=== PATIENT | female | born 1950 | race Caucasian/White ===

== ENCOUNTER 2018-02-28 18:44 | Emergency (ER) | payer OTHER ==
--- OUTSIDE RECORDS SUMMARY | 2018-02-28 18:46 | XMS REPORT | Clinical Summary ---
:1950 Author Organization [facility] Address [address] [place] [address] Care Team Providers Name Role Phone Asked, No Pcp Primary Care Provider Unavailable Allergies Active Allergy Reactions Severity Noted Date Comments Cephalexin Nausea And Vomiting 02/21/2013 Hydrocodone Itching 07/03/2016 Medications Medication Sig Dispensed Refills Start Date End Date Status aspirin (ECOTRIN) 81 MG Take 81 mg by 0 Active enteric coated tablet mouth daily. escitalopram (LEXAPRO) Take 20 mg by 0 Active 10 MG tablet mouth daily. lisinopril Take 20 mg by 0 Active (PRINIVIL,ZESTRIL) 20 mg mouth daily. tablet metoprolol succinate XL Take 50 mg by 0 Active (TOPROL-XL) 25 mg 24 hr mouth daily. tablet Active Problems Not on file Social History Tobacco Use Types Packs/Day Years Used Date Never Smoker Sex Assigned at Date Recorded Not on file Job Start Date Occupation Industry Not on file Not on file Not on file Travel History Travel Start Travel End No recent travel history available. Last Filed Vital Signs Not on file Plan of Treatment Health Maintenance Due Date Last Done Comments CERVICAL CANCER SCREENING 1973 BREAST CANCER SCREENING 2002 COLON CANCER SCREENING 2002 SHINGLES VACCINES (1 of 2) 2002 PNEUMOCOCCAL POLYSACCHARIDE VACCINE AGE 65 AND OVER 2017 PNEUMOCOCCAL-13 2017 INFLUENZA VACCINE 09/26/2017 Results Not on fileafter 02/27/2017 Insurance Payer Benefit Plan / Group Subscriber ID Type Phone Address [employer] [facility] EX[employer]ANGE xxxxxxxxxxxx [employer] Advance Directives Patient has advance care planning documents on file. For more information, please contact:[place] [place] [address]
--- OUTSIDE RECORDS SUMMARY | 2018-02-28 18:47 | XMS REPORT | Continuity of Care Document ---
:1950 Author Organization Interface Problems Problem Status Onset Classification Date Comments Source Date Reported R10.2 - PELVIC Active 09/01/19 [facility] AND PERINEAL PAIN 17 [facility] CVA Active 11/24/19 14 [facility] HEAVY ARMS Active 11/24/19 14 [facility] SPINAL STENOSIS Active 11/24/19 14 [facility] Arthritis Resolved Problem 11/17/2016 [facility] Depression Active Problem 11/17/2016 [facility] Diverticulitis Resolved Problem 11/17/2016 [facility] HTN (<span Resolved Problem 11/17/2016 OP[facility] ID="[id number]"> [facility] Confirmed</span>) [facility] IBS (<span Resolved Problem 11/17/2016 [facility] ID="[id number]"> [facility] Confirmed</span>) [facility] SPINAL STENOSIS Active NOS [facility] Medications Medication Details Route Status Patient Ordering Order Source Instructions Provider Date Ciprofloxacin 500 mg=1 tab, Active 500 MG Oral PO, Q12H, # 2014 [facility] Tablet [Cipro] 14 tab, 0 Refill(s) metoprolol 50 mg, 1 tab, Inactive extended Route: PO, 2013 release Drug form: ERTAB, Daily, Start date: 11/25/13 9:00:00, Duration: 30 day, Stop date: 12/24/13 9:00:00Notes: (Same as: Toprol XL) May split tab, but do not crush. Lexapro 20 mg, 1 tab, Inactive Route: PO, 2013 [facility] Drug form: TAB, Daily, Dosing Weight 71.364, kg, Start date: 11/25/13 9:00:00, Duration: 30 day, Stop date: 12/24/13 9:00:00Notes: (Same as: Lexapro) meloxicam 15 mg, 2 tab, Inactive Route: PO2013 [facility] Drug form: TAB, Daily, Dosing Weight 71.364, kg, Start date: 11/25/13 9:00:00, Duration: 30 day, Stop date: 12/24/13 9:00:00Notes: (Same as: Mobic) Lisinopril 20 mg, 1 tab, Inactive Route: PO, 2013 Drug form: TAB, BID, Dosing Weight 71.364, kg, Start date: 11/25/13 9:00:00, Duration: 30 day, Stop date: 12/24/13 17:00:00Notes : (Same as: Prinivil, Zestril) Pravastatin 10 mg, 0.5 No Longer tab, Route: Active 2013 PO, Drug form: TAB, Bedtime, Dosing Weight 71.364, kg, Start date: 11/24/13 21:00:00, Duration: 30 day, Stop date: 12/23/13 21:00:00Notes : (Same as: Pravachol) Ciprofloxacin 400 mg, 200 No Longer mL, Route: Active 2013 IVPB, Drug form: INJ, [id number], Dosing Weight 71.364, kg, Start date: 11/24/13 19:00:00, Duration: 30 day, Stop date: 12/24/13 7:00:00Notes: Do not refrigerate Rocephin 1 gm, Route: Inactive IVPB, Drug 2013 form: PDR/INJ, [id number], Dosing Weight 71.364, kg, Start date: 11/24/13 17:00:00, Duration: 30 day, Stop date: 12/23/13 17:00:00 pravastatin 10 =10 mg, PO, Active mg oral tablet Bedtime, # 30 2013 tab, 0 Refill(s) Aspirin 325 MG 325 mg=1 tab, Active Enteric Coated PO, Daily, # 2013 Tablet 24 tab, 0 Refill(s) Influenza Virus 0.5 ml, Inactive Vaccine, Route: IM, 2013 Inactivated Drug Form: [id number] SUSP, Daily, 007 (H3N2)-like Start date: virus 11/24/13 ([id number]- 9:00:00, 2006 [facility] Duration: 1 X-175C) strain doses or / Influenza times, Stop Virus Vaccine, date: Inactivated 11/24/13 [id number] 9:00:00Notes: 007, IVR-148 (Same as: (H1N1) strain / Fluzone Influenza Virus Quadrivalent) Vaccine, Inactivated, [id number] 6-lik Lisinopril 25 mg, 2.5 Inactive tab, Route: 2013 PO, Drug form: TAB, Daily, Dosing Weight 71.364, kg, Start date: 11/24/13 9:00:00, Duration: 30 day, Stop date: 12/23/13 9:00:00Notes: (Same as: Prinivil, Zestril) Lexapro 25 mg, 2.5 Inactive tab, Route: 2013 PO, Drug form: TAB, Daily, Dosing Weight 71.364, kg, Start date: 11/24/13 9:00:00, Duration: 30 day, Stop date: 12/23/13 9:00:00Notes: (Same as: Lexapro) metoprolol 25 mg, 1 tab, Inactive extended Route: PO, 2013 release Drug form: ERTAB, Daily, Start date: 11/24/13 9:00:00, Duration: 30 day, Stop date: 12/23/13 9:00:00Notes: (Same as: Toprol XL) Do Not Crush Aspirin 325 MG 325 mg, 1 No Longer Enteric Coated tab, Route: Active 2013 Tablet PO, Drug form: ECTAB, Daily, Dosing Weight 71.364, kg, Start date: 11/24/13 9:00:00, Duration: 30 day, Stop date: 12/23/13 9:00:00Notes: (Do Not Crush) Do not crush or chew. Saline Flush 10 ml, Route: No Longer 0.9% IVP, Drug Active 2013 Form: INJ, Dosing Weight 71.364, kg, Q12H, Start date: 11/23/13 21:00:00, Duration: 30 day, Stop date: 12/23/13 9:00:00Notes: (Same as: BD Posiflush) Ambien 5 mg, 1 tab, No Longer Route: PO, Active 2013 [facility] Drug form: TAB, Bedtime, Dosing Weight 71.364, kg, PRN as needed for sleep, Start date: 11/23/13 17:03:00, Duration: 30 day, Stop date: 12/23/13 17:02:00Notes : (Same As: Ambien) Zolpidem 5 mg=1 tab, Active tartrate 5 MG PO, Bedtime, 2013 Oral Tablet for sleep, 0 [Ambien] Refill(s) Clonidine 0.1 mg, 1 No Longer Hydrochloride tab, Route: Active 2013 [facility] 0.1 MG Oral PO, Drug Tablet form: TAB, Q8H, Dosing Weight 71.364, kg, PRN Elevated BP, Start date: 11/23/13 14:54:00, Duration: 30 day, Stop date: 12/23/13 14:53:00, htnNotes: (Same As: Catapres) Zofran 4 mg, 2 mL, No Longer Route: IVP, Active 2013 [facility] Drug form: INJ, Q4H, Dosing Weight 71.364, kg, PRN Nausea, Start date: 11/23/13 14:51:00, Duration: 30 day, Stop date: 12/23/13 14:50:00Notes : (Same as: Zofran) Ativan 1 mg, 0.5 mL, No Longer Route: IVP, Active 2013 [facility] Drug form: INJ, Q6H, Dosing Weight 71.364, kg, PRN as needed for anxiety, Start date: 11/23/13 14:51:00, Duration: 30 day, Stop date: 12/23/13 14:50:00Notes : (Same as: Ativan) nitroglycerin 0.4 mg, 1 No Longer 0.4 mg tab, Route: Active 2013 [facility] sublingual SL, Drug tablet form: TAB, Q5Min, PRN Chest Pain, Start date: 11/23/13 14:33:00, Duration: 30 day, Stop date: 12/23/13 14:32:00Notes : (Same as:Nitroquick , Nitrostat) "Do Not Crush" Sublingual tablet atropine 0.5 mg, 5 mL, No Longer Route: IVP, Active 2013 [facility] Drug form: INJ, PRN, PRN Bradycardia, Start date: 11/23/13 14:33:00, Duration: 30 day, Stop date: 12/23/13 14:32:00 Saline Flush 10 ml, Route: No Longer 0.9% IVP, Drug Active 2013 [facility] Form: INJ, Dosing Weight 71.364, kg, PRN, PRN Line Flush, Start date: 11/23/13 14:04:00, Duration: 30 day, Stop date: 12/23/13 14:03:00Notes : (Same as: BD Posiflush) Labetalol 10 mg, 2 mL, No Longer Route: IVP, Active 2013 [facility] Drug form: INJ, Q10Min, Dosing Weight 71.364, kg, PRN Hypertension, Start date: 11/23/13 14:04:00, Duration: 30 day, Stop date: 12/23/13 14:03:00, For SBP > 180mmHg and/or DBP > 105mmHgNotes: (Same as: Normodyne, Trandate) Push over 2 minutes Give bolus over 2-3 minutes. aspirin 325 mg, Inactive Route: PO, 2013 [facility] Drug form: ECTAB, ONCE, Dosing Weight 71.364, kg, Priority: STAT, Start date: 11/23/13 11:51:00, Stop date: 11/23/13 11:51:00 Lysine See Active Instructions, 2013 [facility] Daily, 1,000 mg, 0 Refill(s)Spec ial Instructions: 1,000 mg meloxicam PO, Daily, 0 Active Refill(s) 2013 Ascorbic Acid / PO, Daily, 0 Active Biotin / Folic Refill(s) 2013 [facility] Acid / Niacin / pantothenate / pyridoxine / Riboflavin / Thiamine / Vitamin B 12 Lexapro 25 mg, PO, Active Daily, 0 2013 [facility] Refill(s) metoprolol 25 mg, PO, Active extended Daily, 0 2013 release Refill(s) Lisinopril 25 mg, Daily, Active 0 Refill(s) 2013 Saline Flush 10 mL, Route: No Longer 0.9% IVP, Drug Active 2013 [facility] Form: INJ, Dosing Weight 68.182, kg, PRN, PRN Line Flush, Start date: 11/23/13 10:28:00, Duration: 30 day, Stop date: 12/23/13 10:27:00Notes : Same as: BD Posiflush Sterile Allergies, Adverse Reactions, Alerts Substance Category Reaction Severity Reaction Status Date Comments Source type Reported codeine Assertion Drug Active [facility] allergy [facility] Keflex Assertion Drug Active [facility] allergy [facility] Immunizations Immunization Date Site Status Last Comments Source Given Updated influenza virus Right completed [facility] vaccine, 4 Deltoid [facility], inactivated [facility] Results Order Name Results Value Reference Date Interpretation Comments Source Range Abdomen Abdomen ULTRASOUND ABDOMEN COMPLETE 11/14 - [facility] complete complete US /2016 - [facility] US HISTORY: - Liver/ kid cyst; Read by: Bonilla Thompson MD Dictated Date/time: 11/14/16 14:54 Electronically Signed by: Bonilla Thompson MD 11/14/16 14:57 FINAL REPORT COMPARISON: None available. TECHNIQUE: Grayscale and limited color sonographic evaluation of the abdomen was performed with standard technique. FINDINGS: Evaluation limited by large patient body habitus. LIVER: The visualized liver shows normal contour, size, and morphology. Small benign cyst noted in the left hepatic lobe measuring 1 cm. There is mild diffusely increased hepatic echogenicity, compatible with mild hepatic steatosis. BILE DUCTS: The intrahepatic and extrahepatic bile ducts are not dilated with the common bile duct measuring 5 mm. GALLBLADDER: There are no gallstones, gallbladder sludge, pericholecystic fluid or wall thickening. PANCREAS: The pancreas is obscured by bowel gas. SPLEEN: The spleen is unremarkable and measures 9.6 cm in long axis. KIDNEY: The right kidney measures 3.8 x 4.6 x 5.1 cm. The left kidney measures 8.7 x 5.2 x 4.6 cm. There is normal renal contour and morphology, with normal parenchymal echotexture. There is no hydronephrosis. No renal cyst is identified. AORTA AND INFERIOR VENA CAVA: Visualized portions appear normal. ASCITES: There is no abdominal ascites. IMPRESSION: 1. Examination limited by large patient body habitus. 2. Hepatic steatosis. 3. Small benign 1 cm liver cyst. SL: [id number] Pelvis Pelvis PROCEDURE: TRANSVAGINAL PELVIS ULTRASOUND 09/06 [facility] Transvagin Transvaginal /[address] [place] [address] US CLINICAL INDICATION: R10.2. Pelvic pain. Read by: Matheus Wilson MD Dictated Date/time: 09/06/16 16:10 Electronically Signed by: Matheus Wilson MD 09/06/16 16:21 FINAL REPORT COMPARISON: None. TECHNIQUE: Transvaginal ultrasound of the pelvis was performed with sandoval scale and supplemental color flow and Doppler imaging. Static images are submitted. FINDINGS: UTERUS: The uterus measures 5.8 x 2.7 x 3 cm (length x AP x width). The maximal endometrial stripe thickness measures 0.42 cm. There is a 3.5 x 3.2 x 3.9 cm mass adjacent to the posterior lower uterine segment extending into the left adnexa. The primary consideration is a subserosal fibroid. A left adnexal mass cannot be excluded. Images of the cervix are unremarkable. OVARIES: The ovaries are not seen. ADDITIONAL FINDINGS: There is no demonstrable pelvic free fluid. IMPRESSION: 1. There is a 3.9 cm subserosal uterine leiomyoma versus a left adnexal mass. Further evaluation may be obtained with an MRI of the pelvis. 2. Nonvisualization of the ovaries. 3. Otherwise unremarkable transvaginal pelvis ultrasound. SL: 16 Spine Spine MRI CERVICAL SPINE WITHOUT CONTRAST 11/24 cervical cervical [facility] contrast MRI contrast MRI INDICATION: Pain with neurological manifestation Read by: Tino Altamirano MD Dictated Date/time: 11/24/13 16:16 Electronically Signed by: Tino Altamirano MD 11/24/13 16:29 FINAL REPORT COMPARISON: None DISCUSSION: Image detail is degraded by motion artifacts. Alignment: There is mild antilordotic curvature of the cervical spine. Vertebral body alignment is otherwise grossly within normal limits. Craniocervical junction: No abnormalities. The foramen magnum is patent. Vertebral bodies: Normal in height and signal from C2 through T4. Spinal cord: Grossly normal in signal from the foramen magnum through T4- T5. Soft tissues: No signal abnormalities are visualized. Disc spaces, foramina, and spinal canal: C2-C3 and C3-C4: The discs are normal in height and signal. There is no significant arthrosis. The spinal canal and foramina are patent. C4-C5: The disc is normal in height and signal. Mild posterior disc osteophyte complex effaces the ventral cord, without spinal canal stenosis. Mild right uncovertebral and facet arthrosis result in mild right foraminal stenosis. The left foramen is patent. C5-C6: There is mild loss of disc height. Posterior disc osteophyte complex, with 3 mm right paracentral disc protrusion, results in mild spinal canal stenosis and indentation of the ventral cord. Uncovertebra l and facet arthrosis result in severe right foraminal stenosis and mild left foraminal stenosis. C6-C7: There is mild loss of disc height. Posterior disc osteophyte complex and buckling of the ligamentum flavum result in mild spinal canal stenosis and anterior thecal effacement. Bilateral uncovertebral an d right facet arthrosis contribute to moderate right foraminal stenosis and mild left foraminal stenosis. C7-T1: The disc is normal in height and signal. There is no significant arthrosis. The spinal canal and foramina are patent. A small perineural root sleeve cyst is noted at the right foramen. IMPRESSION: 1. Cervical spondylosis results in varying degrees of spinal canal and foraminal stenosis, as described. Spinal canal stenosis is mild at worst. Foraminal stenosis is severe on the right side at C5-C6. 2. A 3 mm right paracentral disc protrusion at C5-C6 contributes to spinal canal stenosis and indentation of the cord. SL: 16 Brain wo Brain wo MRI BRAIN WITHOUT CONTRAST 11/23 - contrast contrast /2013 - [facility] CLINICAL INDICATION: Weakness Read by: Miller Delgado MD Dictated Date/time: 11/24/13 07:43 Electronically Signed by: Miller Delgdao MD 11/24/13 07:44 FINAL REPORT COMPARISON: CT of the brain from 11/23/2013 TECHNIQUE: Multiplanar, multisequence magnetic resonance imaging of the brain was performed without administration of intravenous gadolinium contrast. Findings: Age-related atrophy of the brain parenchyma is seen. Scattered mild chronic microvascular ischemic changes are seen. No restricted areas of diffusion to suggest acute infarct are seen. No acut e intracranial hemorrhage, mass effect, midline shift, or hydrocephalus is seen. There are no extra axial fluid collections. The midline structures are intact. The visualized intracranial flow voids are unremarkable. Mucus retention cyst in the right maxillary sinus is present. IMPRESSION: Mild chronic microvascular ischemic changes without acute intracranial abnormality. SL: 12 LIPIDS HDL 56 mg/dL >=61 mg/dL 11/23 [facility] LIPIDS CHD Risk 3.23 3.90 - 11/23 MH 5.80 /2013 [facility] LIPIDS Chol 181 mg/dL <=199 11/23 MH mg/dL /2013 [facility] LIPIDS Trig 65 mg/dL <=149 11/23 MH mg/dL /2013 [facility] LIPIDS LDL 112 mg/dL <=99 mg/dL 11/23 (Calculated) [facility] LIPIDS VLDL 13 11/23 [facility] CARDIAC CK MB Index 1.6 0.0 - 2.5 11/23 ENZYMES /2013 [facility] CARDIAC Troponin-I null 0.00 - 11/23 [facility] 0.40 [facility] CARDIAC Total CK 133 unit/L 12 - 191 11/23 ENZYMES /2013 [facility] CARDIAC CK MB 2.1 ng/mL 0.5 - 3.6 11/23 ENZYMES [facility] CHEM PANEL eGFR 94 11/23 1Result Comment: The eGFR is calculated using the CKD-EPI formula. In most young, healthy individuals the eGFR will be >90 mL/ min/1.73m2. The eGFR declines with age. An eGFR of 60-89 may be normal in mL/min/1.7 /2013 some populations, particularly the elderly, for whom the CKD-EPI formula has not been extensively validated. Use of the eGFR is not recommended in the following populations: [facility] 3m2 Individuals with unstable creatinine concentrations, including patients and those with serious co-morbid conditions. Patients with extremes in muscle mass or diet. The data above are obtained from the National Kidney Disease Education Program (NKDEP) which additionally recommends that when the eGFR is used in patients with extremes of body mass index for purposes of drug dosing, the eGFR should be multiplied by the estimated BMI. CHEM PANEL BUN 20 mg/dL 7 - 22 11/23 [facility] CHEM PANEL Chloride Lvl 109 meq/L 95 - 109 11/23 [facility] CHEM PANEL Sodium Lvl 143 meq/L 135 - 145 11/23 [facility] CHEM PANEL Calcium Lvl 8.8 mg/dL 8.5 - 10.5 11/23 [facility] CHEM PANEL AGAP 11.7 meq/L 10.0 - 11/23 MH 20.0 [facility] CHEM PANEL Creatinine 0.7 mg/dL 0.5 - 1.4 11/23 Lvl [facility] CHEM PANEL Glucose Lvl 97 mg/dL 70 - 99 11/23 2Interpretive Data: Adult reference range values reflect the clinical guidelines of the [employer]. [facility] CHEM PANEL Potassium 3.7 meq/L 3.5 - 5.1 11/23 Lvl [facility] CHEM PANEL CO2 26 meq/L 24 - 32 11/23 [facility] HEMATOLOGY Eosinophils 2.3 % 0.0 - 4.0 11/23 [facility] HEMATOLOGY Segs-Bands # 6.0 K/CMM 1.5 - 8.1 11/23 [facility] HEMATOLOGY Basophils 0.9 % 0.0 - 1.0 11/23 [facility] HEMATOLOGY Eosinophils 0.2 K/CMM 0.0 - 0.5 11/23 MH # /2013 [facility] HEMATOLOGY Monocytes # 0.7 K/CMM 0.0 - 0.8 11/23 [facility] HEMATOLOGY Lymphocytes 1.9 K/CMM 1.0 - 5.5 11/23 MH # /2013 [facility] HEMATOLOGY Basophils # 0.1 K/CMM 0.0 - 0.2 11/23 [facility] HEMATOLOGY Segs 67.8 % 45.0 - 11/23 MH 75.0 [facility] HEMATOLOGY Lymphocytes 21.2 % 20.0 - 11/23 MH 40.0 /2013 [facility] HEMATOLOGY Monocytes 7.8 % 2.0 - 12.0 11/23 [facility] HEMATOLOGY PTT 30.3 s 22.9 - 11/23 4Interpretive 35.8 Data: Heparin [facility] Therapeutic Range: 57 - 92 Seconds HEMATOLOGY Platelet 251 K/CMM 133 - 450 11/23 [facility] HEMATOLOGY RDW 13.6 % 11.5 - 11/23 MH 14. [facility] HEMATOLOGY MCV 90.4 fL 80.0 - 11/23 MH 98.0 [facility] HEMATOLOGY MCH 31.4 pg 27.0 - 11/23 MH 31.0 /2014 [facility] HEMATOLOGY MPV 8.9 fL 7.4 - 10.4 11/23 [facility] HEMATOLOGY WBC 8.9 K/CMM 3.7 - 10.4 11/23 [facility] HEMATOLOGY MCHC 34.7 g/dL 32.0 - 11/23 36.0 /2013 [facility] HEMATOLOGY Hgb 12.2 g/dL 12.0 - 11/23 16.0 /2013 [facility] HEMATOLOGY Hct 35.2 % 36.0 - 11/23 48.0 /2014 [facility] HEMATOLOGY RBC 3.89 M/CMM 4.20 - 11/23 5.40 /2014 [facility] HEMATOLOGY INR 1.05 0.85 - 11/23 3Interpretive Data: RECOMMENDED RANGES FOR PROTIME INR: 1.17 2.0-3.0 for most medical and surgical thromboembolic states. [facility] 2.5-3.5 for artificial heart valves and recurrent embolism. INR SHOULD BE USED ONLY FOR PATIENTS ON STABLE ANTICOAGULANT THERAPY. HEMATOLOGY PT 13.7 s 12.0 - 11/23 14.7 /2013 [facility] URINE AND UA 0.2 EU/dL 0.1 - 1.0 11/23 STOOL Urobilinogen [facility] URINE AND UA Nitrite Negative Negative 11/23 STOOL [facility] (11/23/13 11:00 AM) URINE AND UA Leuk Est Moderate Negative 11/23 [facility] *ABN* (11/23/13 11:00 AM) URINE AND UA Blood Negative Negative 11/23 STOOL [facility] (11/23/13 11:00 AM) URINE AND UA Protein Negative Negative 11/23 STOOL [facility] (11/23/13 11:00 AM) URINE AND UA Glucose Negative Negative 11/23 STOOL [facility] (11/23/13 11:00 AM) URINE AND UA Ketones Negative Negative 11/23 STOOL [facility] *NA* (11/23/13 11:00 AM) URINE AND UA Spec Grav 1.010 <=1.030 11/23 STOOL [facility] URINE AND UA pH 6.0 5.0 - 8.0 11/23 STOOL [facility] URINE AND UA Bili Negative Negative 11/23 STOOL [facility] *NA* (11/23/13 11:00 AM) URINE AND UA Color Yellow Yellow 11/23 [facility] *NA* (11/23/13 11:00 AM) URINE AND UA Turbidity Slight Cloudy Clear 11/23 [facility] (11/23/13 11:00 AM) URINE AND UA Sq Epi Few /LPF Few /LPF 11/23 URINE AND UA RBC 0-2 /HPF 0 - 2 11/23 URINE AND UA WBC 3-5 /HPF None Seen 11/23 STOOL /HPF URINE AND UA Bacteria Few /HPF None Seen 11/23 STOOL /HPF [facility] Carotid Carotid HISTORY: Weakness. 11/23 artery artery Doppler Doppler bilat US bilat US Read by: Ben Kingston MD Dictated Date/time: 11/24/13 07:18 Electronically Signed by: Ben Kingston MD 11/24/13 07:19 FINAL REPORT Note: "Any reported ICA stenoses indirectly reference the distal internal carotid diameter as the denominator for stenosis measurement, using consensus panel criteria." Right ICA peak systolic velocity 1.1 m/sec. Left ICA peak systolic velocity 1.0 m/sec. The internal to common carotid artery systolic velocity ratio 0.97 on the right and 0.98 on the left. Antegrade mariaelena tebral artery flow is present bilaterally. Color flow and grayscale images do not demonstrate any further suggestion of high-grade carotid stenosis. IMPRESSION: Less than 50% stenosis in the ICA bilaterally by sonographic criteria. SL:13 Chest Chest 1view CHEST SINGLE VIEW (PORTABLE AP): 11/23 - HX: CVA COMPARISON: 01/13/2011 Read by: Arnaud Faith MD Dictated Date/time: 11/23/13 10:55 Electronically Signed by: Arnaud Faith MD 11/23/13 10:55 FINAL REPORT FINDINGS: The image is obtained in a lordotic projection. The lungs are free of consolidation or pleural effusion and the mediastinal silhouette is within normal limits of size. The visualized osseous structures are grossly normal. IMPRESSION: Negative chest. SL: [address] wo [address] HEAD WITHOUT CONTRAST 11/[address] /2013 CT HX: Weakness Read by: Arnaud Faith MD Dictated Date/time: 11/23/13 10:52 FINDINGS: Views of the brain show no evidence of intracranial hemorrhage, acute stroke, mass effect, or shift of midline structures. The ventricles and sulci are within normal limits of size. No abnormal extra-axial fluid collections are noted. Electronically Signed by: Arnaud Faith MD 11/23/13 10:53 FINAL REPORT IMPRESSION: Negative CT of the brain without contrast. SL: 13 Vital Signs Vital Sign Value Date Comments Source Systolic (mm Hg) 136 11/25/2013 [facility] Respitory Rate 18 11/25/2013 [facility] Heart Rate 63 11/25/2013 [facility] Diastolic (mm Hg) 79 11/25/2013 [facility] Temperature Oral (F) 98.4 F 11/25/2013 [facility] Systolic (mm Hg) 164 11/25/2013 [facility] Diastolic (mm Hg) 79 11/25/2013 [facility] Respitory Rate 18 11/25/2013 [facility] Heart Rate 83 11/25/2013 [facility] Temperature Oral (F) 98.4 F 11/25/2013 [facility] Diastolic (mm Hg) 79 11/25/2013 [facility] Heart Rate 71 11/25/2013 [facility] Temperature Oral (F) 98.3 F 11/25/2013 [facility] Systolic (mm Hg) 145 11/25/2013 [facility] Respitory Rate 16 11/25/2013 [facility] Height 157.48 cm 11/23/2013 [facility] BMI Calculated 28.78 11/23/2013 [facility] Weight 71.364 11/23/2013 [facility] Weight 71.364 11/23/2013 [facility] BMI Calculated 28.78 11/23/2013 [facility] Height 157.48 cm 11/23/2013 [facility] Encounters Location Location Encounter Encounter Reason Attending ADM DC Status Source Details Type Number For Provider Date Date Visit [facility] [id number] R[facility] 11/23 11/25 Mika Arguelles /2013 [facility] [id number] Sherrell 09/06 09/07 [facility] Jeferson /2016 [facility] [id number] Thien 11/14 11/15 [facility] Roberth /2016 [facility] Procedures Procedure Code Date Perfomer Comments Source Foot joint [id number] [id number] [id number] [facility] Knee arthroplasty [id number] [facility]
[2018-02-28 20:31] LABS: Absolute Lymphocytes (CBC) 2.3 K/uL (0.7-4.9); Absolute Monocytes 0.6 K/uL (0.1-1.3); Absolute Neutrophil 4.3 K/uL (1.8-8.0); Eosinophils % 3.4 % (0-4.4); Hematocrit 42.5 % (36.0-45.0); Lymphocytes % 30.3 % (15.3-44.8); MPV 9.5 fL (7.6-11.3); Monocytes % 8.3 % (3.3-12.3); RBC Red Blood Cell Count 4.47 M/uL (3.86-4.86)
[2018-02-28 20:40] LABS: Protime INR 1.12
--- NOTE | 2018-02-28 20:45 | RAD REPORT ---
EXAM DESCRIPTION: Narendra Single View02/28/2018 8:34 pm CLINICAL HISTORY: cough COMPARISON: March 2017 FINDINGS: The lungs appear clear of acute infiltrate. The heart is normal size IMPRESSION: No acute abnormalities displayed
--- NOTE | 2018-02-28 20:51 | RAD REPORT ---
EXAM DESCRIPTION: CT - Head Brain Wo Cont - 02/28/2018 8:26 pm CLINICAL HISTORY: Dizziness COMPARISON: None. TECHNIQUE: Computed axial tomography of the head was obtained. IV contrast was not requested. All CT scans are performed using dose optimization technique as appropriate and may include automated exposure control or mA/KV adjustment according to patient size. FINDINGS: An intracranial bleed is not seen . The ventricles are normal in caliber. No extra-axial fluid collection is noted. Mild low-density areas within periventricular deep white ma tter likely represent ischemic changes secondary to small vessel disease. Fluid within the sinuses/ mastoids is not seen. IMPRESSION: No acute intracranial abnormality is seen. If patient's symptoms persist MRI of the bra in would be recommended.
[2018-02-28 20:53] LABS: ALT/SGPT 23 U/L (12-78); AST/SGOT 19 U/L (15-37); Alkaline Phosphatase 94 U/L (45-117); BUN Blood Urea Nitrogen 13 mg/dL (7-18); Bicarbonate 29 mmol/L (21-32); Bilirubin Direct < 0.1 mg/dL (0-0.2); Bilirubin Total 0.3 mg/dL (0.2-1.0); Glucose Level 103 mg/dL (74-106); Magnesium 2.4 mg/dL (1.8-2.4); NT PRO-BNP 126 pg/mL (<125); Potassium 3.6 mmol/L (3.5-5.1); Protein, Total 7.4 g/dL (6.4-8.2); Sodium Level 141 mmol/L (136-145); Troponin (Emerg Dept Use Only) < 0.02 ng/mL (0.0-0.045)
[2018-02-28] MEDS ORDERED: MECLIZINE HCL 12.5 MG TAB ONE (21:11)
[2018-02-28] MEDS ORDERED: NA CHLORIDE 0.9% 1,000 ML ONE (21:11)
[2018-02-28] MEDS ORDERED: ASPIRIN 81 MG CHEWABLE TABLET ONE (21:17)
--- NOTE | 2018-02-28 21:17 | EDPHYS ---
Physician Documentation [facility] Name: Tierra Gage Age: 67 yrs Sex: Female : 1950 Arrival Date: 02/28/2018 Time: 18:45 Bed 30 Private MD: Constantine Carrington ED Physician Quincy Sher HPI: 02/28 20:16 This 67 yrs old Female presents to ER via Ambulatory with complaints of lonnie Dizziness. 20:16 The patient presents with dizziness, sense of spinning, vertigo. Onset: The lonnie symptoms/episode began/occurred 2 day(s) ago. Context: occurred at home, occurred while the patient was unclear. Modifying factors: The symptoms are alleviated by nothing, the symptoms are aggravated by nothing. Associated signs and symptoms: Pertinent positives: nausea. Severity of symptoms: At their worst the symptoms were mild in the emergency department the symptoms are unchanged. Patient's baseline: Neuro:. The patient has not experienced similar symptoms in the past. Historical: - Allergies: 18:52 Hydrocodone-Acetaminophen; ch 18:52 Keflex; ch 18:52 polyester; ch - PMHx: 18:52 CAD; CVA; High Cholesterol; Hypertension; TIA; ch - PSHx: 18:52 toe surgery; Knee surgery; ch - Immunization history:: Adult Immunizations up to date, Flu vaccine is not up to date. - Social history:: Smoking status: Patient/guardian denies using tobacco, Patient uses alcohol, on a daily basis. - Ebola Screening: : Patient negative for fever greater than or equal to 101.5 degrees Fahrenheit, and additional compatible Ebola Virus Disease symptoms Patient denies exposure to infectious person Patient denies travel to an Ebola-affected area in the 21 days before illness onset No symptoms or risks identified at this time. - Family history:: not pertinent. ROS: 20:16 Constitutional: Negative for fever, chills, and weight loss, Eyes: Negative for injury, lonnie pain, redness, and discharge, ENT: Negative for injury, pain, and discharge, Neck: Negative for injury, pain, and swelling, Cardiovascular: Negative for chest pain, palpitations, and edema, Respiratory: Negative for shortness of breath, cough, wheezing, and pleuritic chest pain, Abdomen/GI: Negative for abdominal pain, nausea, vomiting, diarrhea, and constipation, Back: Negative for injury and pain, : Negative for injury, bleeding, discharge, and swelling, MS/Extremity: Negative for injury and deformity, Skin: Negative for injury, rash, and discoloration, Psych: Negative for depression, anxiety, suicide ideation, homicidal ideation, and hallucinations, Allergy/Immunology: Negative for hives, rash, and allergies, Endocrine: Negative for neck swelling, polydipsia, polyuria, polyphagia, and marked weight changes, Hematologic/Lymphatic: Negative for swollen nodes, abnormal bleeding, and unusual bruising. 20:16 Skin: Positive for 20:16 Neuro: Positive for dizziness. Exam: 20:16 Constitutional: This is a well developed, well nourished patient who is awake, alert, lonnie and in no acute distress. Head/Face: Normocephalic, atraumatic. Eyes: Pupils equal round and reactive to light, extra-ocular motions intact. Lids and lashes normal. Conjunctiva and sclera are non-icteric and not injected. Cornea within normal limits. Periorbital areas with no swelling, redness, or edema. ENT: Nares patent. No nasal discharge, no septal abnormalities noted. Tympanic membranes are normal and external auditory canals are clear. Oropharynx with no redness, swelling, or masses, exudates, or evidence of obstruction, uvula midline. Mucous membranes moist. Neck: Trachea midline, no thyromegaly or masses palpated, and no cervical lymphadenopathy. Supple, full range of motion without nuchal rigidity, or vertebral point tenderness. No Meningismus. Chest/axilla: Normal chest wall appearance and motion. Nontender with no deformity. No lesions are appreciated. Cardiovascular: Regular rate and rhythm with a normal S1 and S2. No gallops, murmurs, or rubs. Normal PMI, no JVD. No pulse deficits. Respiratory: Lungs have equal breath sounds bilaterally, clear to auscultation and percussion. No rales, rhonchi or wheezes noted. No increased work of breathing, no retractions or nasal flaring. Abdomen/GI: Soft, non-tender, with normal bowel sounds. No distension or tympany. No guarding or rebound. No evidence of tenderness throughout. Back: No spinal tenderness. No costovertebral tenderness. Full range of motion. Female : Normal external genitalia. Skin: Warm, dry with normal turgor. Normal color with no rashes, no lesions, and no evidence of cellulitis. MS/ Extremity: Pulses equal, no cyanosis. Neurovascular intact. Full, normal range of motion. Neuro: Awake and alert, GCS 15, oriented to person, place, time, and situation. Cranial nerves II-XII grossly intact. Motor strength 5/5 in all extremities. Sensory grossly intact. Cerebellar exam normal. Normal gait. Psych: Awake, alert, with orientation to person, place and time. Behavior, mood, and affect are within normal limits. 21:33 Musculoskeletal/extremity: DVT Exam: No signs of deep vein thrombosis. no pain, no lonnie swelling, no tenderness, negative Homans' sign noted on exam, no appreciated bluish discoloration, no erythema, no increased warmth. Vital Signs: 18:52 BP 188 / 83; Pulse 55; Resp 14; Temp 98.7; Pulse Ox 99% on R/A; Weight 68.04 kg; Height ch 5 ft. 2 in. (157.48 cm); Pain 0/10; 19:45 BP 143 / 74; Pulse 53; Resp 16; Pulse Ox 95% on R/A; jb4 21:23 BP 181 / 64 LA Supine; Pulse 54; Resp 16; Pulse Ox 96% on R/A; jb4 21:25 BP 190 / 81 LA Sitting; Pulse 52; Resp 16; Pulse Ox 97% on R/A; jb4 21:27 BP 184 / 93 LA Standing; Pulse 59; Resp 18; Pulse Ox 97% on R/A; jb4 22:15 BP 155 / 83; Pulse 56; Resp 18; Pulse Ox 97% on R/A; jb4 18:52 Body Mass Index 27.44 (68.04 kg, 157.48 cm) MDM: 20:05 Patient medically screened. [facility] 20:20 Data reviewed: vital signs, nurses notes, lab test result(s), EKG, radiologic studies, [facility] CT scan, doppler, plain films. 02/28 20:16 Order name: Basic Metabolic Panel; Complete Time: 21:03 [facility] 02/28 20:16 Order name: CBC with Diff; Complete Time: 21:03 [facility] 02/28 20:16 Order name: LFT's; Complete Time: 21: [facility] 02/28 20:16 Order name: Magnesium; Complete Time: 21: [facility] 02/28 20:16 Order name: NT PRO-BNP; Complete Time: 21:03 [facility] 02/28 20:16 Order name: PT-INR; Complete Time: 21:03 [facility] 02/28 20:16 Order name: Troponin (emerg Dept Use Only); Complete Time: 21:03 [facility] 02/28 20:16 Order name: XRAY Chest (1 view); Complete Time: 21:03 [facility] 02/28 20:16 Order name: CT Head Brain wo Cont; Complete Time: 21:03 [facility] 02/28 20:16 Order name: Urine Culture [facility] 02/28 20:16 Order name: US Carotid Artery Bilateral [facility] 02/28 21:39 Order name: Urine Dipstick--Ancillary (enter results) wi 02/28 20:16 Order name: EKG; Complete Time: 20:17 [facility] 02/28 20:16 Order name: Cardiac monitoring; Complete Time: 20:24 [facility] 02/28 20:16 Order name: EKG - Nurse/Tech; Complete Time: 20:24 [facility] 02/28 20:16 Order name: IV Saline Lock; Complete Time: 20:25 [facility] 02/28 20:16 Order name: Labs collected and sent; Complete Time: 20:25 [facility] 02/28 20:16 Order name: O2 Per Protocol; Complete Time: 20:25 [facility] 02/28 20:16 Order name: O2 Sat Monitoring; Complete Time: 20:20 [facility] 02/28 20:16 Order name: Urine Dipstick-Ancillary (obtain specimen); Complete Time: 21:41 [facility] 02/28 21:13 Order name: Orthostatics; Complete Time: 21:29 [facility] Administered Medications: 20:21 CANCELLED (Duplicate Order): Meclizine 25 mg PO once lonnie 21:15 Drug: Meclizine 50 mg Route: PO; jb4 22:15 Follow up: Response: No adverse reaction; Marked relief of symptoms jb4 21:15 Drug: Aspirin 162 mg Route: PO; jb4 22:15 Follow up: Response: No adverse reaction jb4 21:17 Drug: NS 0.9% 1000 ml Route: IV; Rate: 1 bolus; Site: right antecubital; jb4 22:15 Follow up: Response: No adverse reaction; IV Status: Completed infusion jb4 Disposition: 02/28/18 21:16 Discharged to Home. Impression: Dizziness and giddiness, Vertiginous syndromes in diseases classified elsewhere, unspecified ear, Bradycardia, unspecified. - Condition is Stable. - Discharge Instructions: Benign Positional Vertigo, Bradycardia, Adult, Dizziness, Vertigo, Jtuk-[id number], Aspirin and Your Heart, Dizziness, Qcgk-[id number]. - Prescriptions for Meclizine 25 mg Oral Tablet - take 1 tablet by ORAL route every 8 hours As needed; 30 tablet. - Medication Reconciliation Form, Thank You Letter, Antibiotic Education, Prescription Opioid Use form. - Follow up: Constantine Carrington; When: 2 - 3 days; Reason: Recheck today's complaints, Continuance of care, Re-evaluation by your physician. Follow up: Vinny Rao MD; When: 5 - 6 days; Reason: Recheck today's complaints, Continuance of care, Re-evaluation by your physician. - Problem is new. - Symptoms have improved. Signatures: Dispatcher [employer] EDRosy Ronquillo RN RN ch Anderson, Corey, MD MD cha Bryson, James, RN RN jb4 Corrections: (The following items were deleted from the chart) 20:21 20:16 Meclizine 25 mg PO once ordered. lonnie fleming 22:27 21:16 02/28/2018 21:16 Discharged to Home. Impression: Dizziness and giddiness; jb4 Vertiginous syndromes in diseases classified elsewhere, unspecified ear; Bradycardia, unspecified. Condition is Stable. Discharge Instructions: Benign Positional Vertigo, Dizziness, Vertigo, Phku-kl-Eqrl, Aspirin and Your Heart, Dizziness, [place], Bradycardia, Adult. Prescriptions for Meclizine 25 mg Oral Tablet - take 1 tablet by ORAL route every 8 hours As needed; 30 tablet. and Forms are Medication Reconciliation Form, Thank You Letter, Antibiotic Education, Prescription Opioid Use. Follow up: Constantine Carrington; When: 2 - 3 days; Reason: Recheck today's complaints, Continuance of care, Re-evaluation by your physician. Follow up: Vinny Rao; When: 5 - 6 days; Reason: Recheck today's complaints, Continuance of care, Re-evaluation by your physician. Problem is new. Symptoms have improved. lonnie
--- NOTE | 2018-02-28 21:17 | ER ---
Nurse's Notes [facility] Name: Tierra Gage Age: 67 yrs Sex: Female : 1950 Arrival Date: 02/28/2018 Time: 18:45 Bed 30 Private MD: Constantine Carrington Diagnosis: Dizziness and giddiness;Vertiginous syndromes in diseases classified elsewhere, unspecified ear;Bradycardia, unspecified Presentation: 02/28 18:50 Presenting complaint: Patient states: dizzyness, when I lay down, when I change ch positions. for the past 3 days, on and off. denies pain, c/o light headedness. Transition of care: patient was not received from another setting of care. Onset of symptoms was February 25, 2018. Risk Assessment: Do you want to hurt yourself or someone else? Patient reports no desire to harm self or others. Initial Sepsis Screen: Does the patient meet any 2 criteria? No. Patient's initial sepsis screen is negative. Does the patient have a suspected source of infection? No. Patient's initial sepsis screen is negative. Care prior to arrival: None. 18:50 Method Of Arrival: Ambulatory 18:50 Acuity: DENNY 3 ch Triage Assessment: 18:52 General: Appears in no apparent distress. comfortable, Behavior is calm, cooperative, ch appropriate for age. Pain: Denies pain. Historical: - Allergies: 18:52 Hydrocodone-Acetaminophen; ch 18:52 Keflex; 18:52 polyester; ch - PMHx: 18:52 CAD; CVA; High Cholesterol; Hypertension; TIA; ch - PSHx: 18:52 toe surgery; Knee surgery; ch - Immunization history:: Adult Immunizations up to date, Flu vaccine is not up to date. - Social history:: Smoking status: Patient/guardian denies using tobacco, Patient uses alcohol, on a daily basis. - Ebola Screening: : Patient negative for fever greater than or equal to 101.5 degrees Fahrenheit, and additional compatible Ebola Virus Disease symptoms Patient denies exposure to infectious person Patient denies travel to an Ebola-affected area in the 21 days before illness onset No symptoms or risks identified at this time. - Family history:: not pertinent. Screenin:07 Abuse screen: Denies threats or abuse. Nutritional screening: No deficits noted. jb4 Tuberculosis screening: No symptoms or risk factors identified. Fall Risk None identified. Assessment: 19:07 Reassessment: Patient appears in no apparent distress at this time. General: Appears in jb4 no apparent distress. comfortable, Behavior is calm, cooperative, appropriate for age. Pain: Complains of pain in right side of the back of head Pain does not radiate. Pain currently is 5 out of 10 on a pain scale. Quality of pain is described as tender. Neuro: Level of Consciousness is awake, alert, obeys commands, Oriented to person, place, time, situation, Reports dizziness, since Past 3 days. Cardiovascular: Heart tones S1 S2 present Patient's skin is warm and dry. Rhythm is sinus bradycardia. Respiratory: Airway is patent Respiratory effort is even, unlabored, Respiratory pattern is regular, symmetrical, Breath sounds are clear bilaterally. GI: No signs and/or symptoms were reported involving the gastrointestinal system. : No signs and/or symptoms were reported regarding the genitourinary system. EENT: No signs and/or symptoms were reported regarding the EENT system. Derm: Skin is intact, Skin is pink, warm \T\ dry. Musculoskeletal: Circulation, motion, and sensation intact. 19:45 Reassessment: Patient appears in no apparent distress at this time. No changes from jb4 previously documented assessment. Patient and/or family updated on plan of care and expected duration. Pain level reassessed. Patient is alert, oriented x 3, equal unlabored respirations, skin warm/dry/pink. 20:57 Reassessment: Pt is in CT. jb4 21:30 Reassessment: Patient appears in no apparent distress at this time. No changes from jb4 previously documented assessment. Patient and/or family updated on plan of care and expected duration. Pain level reassessed. Patient is alert, oriented x 3, equal unlabored respirations, skin warm/dry/pink. Pt is back from Ultrasound. 22:23 Reassessment: Patient appears in no apparent distress at this time. Patient and/or jb4 family updated on plan of care and expected duration. Pain level reassessed. Patient is alert, oriented x 3, equal unlabored respirations, skin warm/dry/pink. Discussed D/c , F/u with pt, denies questions or concerns. Patient states feeling better. Vital Signs: 18:52 BP 188 / 83; Pulse 55; Resp 14; Temp 98.7; Pulse Ox 99% on R/A; Weight 68.04 kg; Height 5 ft. 2 in. (157.48 cm); Pain 0/10; 19:45 BP 143 / 74; Pulse 53; Resp 16; Pulse Ox 95% on R/A; jb4 21:23 BP 181 / 64 LA Supine; Pulse 54; Resp 16; Pulse Ox 96% on R/A; jb4 21:25 BP 190 / 81 LA Sitting; Pulse 52; Resp 16; Pulse Ox 97% on R/A; jb4 21:27 BP 184 / 93 LA Standing; Pulse 59; Resp 18; Pulse Ox 97% on R/A; jb4 22:15 BP 155 / 83; Pulse 56; Resp 18; Pulse Ox 97% on R/A; jb4 18:52 Body Mass Index 27.44 (68.04 kg, 157.48 cm) ED Course: 18:45 Patient arrived in ED. as 18:45 Armando Reyes MD is Private Physician. as 18:45 Constantine Carrington DO is Private Physician. as 18:51 Triage completed. 18:52 Arm band placed on left wrist. Patient placed in waiting room. 18:57 Kenneth Singer, LISANDRO is Primary Nurse. jb4 19:07 Patient has correct armband on for positive identification. Placed in gown. Bed in low jb4 position. Call light in reach. Side rails up X 1. pvc monitor on. Pulse ox on. NIBP on. 19:24 Initial lab(s) drawn, by il, EKG done, by ED staff, reviewed by Quincy Sher MD. jb4 Inserted saline lock: 22 gauge in right antecubital area, using aseptic technique. Blood collected. 20:05 Quincy Sher MD is Attending Physician. lonnie 20:[address] via stretcher. vm2 20:24 CT completed. Patient tolerated procedure well. vm2 20:27 CT Head Brain wo Cont In Process Unspecified. EDMS 20:34 XRAY Chest (1 view) In Process Unspecified. EDMS 21:14 US Carotid Artery Bilateral In Process Unspecified. EDMS 21:15 Constantine Carrington DO is Referral Physician. lonnie 21:16 Vinny Rao MD is Referral Physician. lonnie 22:15 No provider procedures requiring assistance completed. IV discontinued, intact, jb4 bleeding controlled. Administered Medications: 20:21 CANCELLED (Duplicate Order): Meclizine 25 mg PO once lonnie 21:15 Drug: Meclizine 50 mg Route: PO; jb4 22:15 Follow up: Response: No adverse reaction; Marked relief of symptoms jb4 21:15 Drug: Aspirin 162 mg Route: PO; jb4 22:15 Follow up: Response: No adverse reaction jb4 21:17 Drug: NS 0.9% 1000 ml Route: IV; Rate: 1 bolus; Site: right antecubital; jb4 22:15 Follow up: Response: No adverse reaction; IV Status: Completed infusion jb4 Outcome: 21:16 Discharge ordered by . lonnie 22:15 Discharged to home via wheelchair, with significant other. jb4 22:15 Condition: stable 22:15 Discharge instructions given to patient, Instructed on discharge instructions, follow up and referral plans. medication usage, Demonstrated understanding of instructions, follow-up care, medications, Prescriptions given X 1. 22:27 Patient left the ED. jb4 Signatures: Dispatcher [employer] EDRosy Ronquillo, RN Quincy Whitfield ch, MD MD cha Martinez, Amelia as Bryson, James, RN RN jbPeri [facility]
--- NOTE | 2018-02-28 21:40 | RAD REPORT ---
EXAM DESCRIPTION: USCarotid Artery Bilateral02/28/2018 9:15 pm CLINICAL HISTORY: Syncope COMPARISON: None FINDINGS: The velocity of the right internal carotid artery equals 90 cm/sec. The right ICA/CCA rati o 1.3 The velocity of the left internal carotid artery equals 102 cm/sec. The left ICA/CCA ratio 1.4 Plaque is not seen within the carotid arteries. The vertebral arteries demonstrate antegrade flow IMPRESSION: Unremarkable examination NASCET criteria used. Mild 0-49% stenosis Moderate 50-69% stenosis Severe 70-99% stenosis
[2018-02-28 21:46] LABS: Urine Blood NEGATIVE (NEG); Urine Glucose NEGATIVE (NEG); Urine Protein NEGATIVE (NEG)
--- NOTE | 2018-03-01 07:47 | EKG ---
Test Date: 2018-02-28 Test Time: 19:37:42 Biological Engineer: [id number] MEASUREMENT RESULTS: Intervals: Rate: 54 NC: 150 QRSD: 88 QT: 456 QTc: 432 Novelty: P: 33 NC: 150 QRS: 12 T: 24 INTERPRETIVE STATEMENTS: Sinus bradycardia Otherwise normal ECG No previous ECG available for comparison Electronically Signed On 03-01-18 07:45:49 VOLUNTEER SERVICES ASSISTANT by Jaylan Manuel
== END 2018-02-28 22:27 | disposition home or self-care (01) ==
LOC: ER 18:44
DX: R00.1 Bradycardia, unspecified (principal); H82.9 Vertiginous syndromes in diseases classified elsewhere, unspecified ear; I10 Essential (primary) hypertension; Z88.1 Allergy status to other antibiotic agents; Z88.5 Allergy status to narcotic agent; Z88.8 Allergy status to other drugs, medicaments and biological substances
CPT/HCPCS: 36415; 70450; 71045; 80048; 80076; 81003; 83735; 83880; 84484; 85025; 85610; 87086; 87088; 93005; 93880; 96360; 99285; J7030